=== PATIENT | male | born 2000 | race Caucasian/White ===

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

== ENCOUNTER → 2020-12-02 | Outpatient (CLI) | payer SELFPAY ==
[~2020-12-02] MED LIST changes: +MEDROL DOSEPAK4 MG PO
== END | disposition home or self-care (01) ==
LOC: COVID19 11:47
PROVIDERS: ATTEND Internal Medicine
DX: Z20.828 Contact with and (suspected) exposure to other viral communicable diseases (principal)

== ENCOUNTER 2020-12-20 15:10 | Emergency (ER) | payer SELFPAY ==
[~2020-12-20] VITALS: Wt 113.4 kg
[2020-12-20 15:17] VITALS: BP 130/86
[2020-12-20] MEDS ORDERED: SEPTDS PO (16:31)
[2020-12-20] MEDS ORDERED: VALTREX1000 MG PO (16:31)
[2020-12-20] MEDS ORDERED: CEPHALEXIN500 M1 PO (16:31)
== END 2020-12-20 16:42 | disposition home or self-care (01) ==
LOC: ED 15:10
DX: K12.0 Recurrent oral aphthae (principal); L30.9 Dermatitis, unspecified

== ENCOUNTER 2022-07-01 10:20 | Emergency (ER) | payer OTHER ==
[~2022-07-01] VITALS: Ht 190.5 cm; Wt 149.7 kg
[~2022-07-01 10:20] MED LIST changes: +CEPHALEXIN500 M1 PO; +SEPTDS PO; +VALTREX1000 MG PO
[2022-07-01 10:25] VITALS: BP 127/79
[2022-07-01 11:34] LABS: BASO % 0.4 % (0.0-1.0); EOS % 0.4 % (1.0-4.0); HEMATOCRIT 39.1 % (42.0-52.0); LYMPH # 0.4 10*3/uL (1.3-4.4); LYMPH % 13.9 % (27.0-41.0); MEAN CELL VOLUME 78.2 fl (80.0-94.0); MEAN CORPUSCULAR HGB 27.8 pg (27.0-31.0); MEAN CORPUSCULAR HGB CONC 35.5 g/dl (33.0-37.0); MEAN PLATELET VOLUME 10.2 fl (9.6-12.3); MONO # 0.2 10*3/uL (0.1-1.0); MONO % 6.6 % (3.0-9.0); NEUT % 78.3 % (47.0-73.0); PLATELET COUNT AUTOMATED 109 10*3/uL (130-400); WHITE BLOOD COUNT 2.6 10*3/uL (4.8-10.8)
[2022-07-01 11:50] LABS: ALKALINE PHOSPHATASE 61 U/L (45-117); BUN 8 mg/dl (7-24); CHLORIDE 105 mmol/L (98-107); CREATININE 1.17 mg/dL (0.70-1.30); POTASSIUM 3.7 mmol/L (3.5-5.1); SGOT/AST 31 IU/L (3-35); SGPT/ALT 37 U/L (12-78); SODIUM 136 mmol/L (136-145); TOTAL PROTEIN 6.8 gm/dL (6.4-8.2)
[2022-07-01 12:00] LABS: BILIRUBIN Negative (Negative); BLOOD Negative (Negative); CLARITY Clear (Clear); COLOR Yellow (Yellow); GLUCOSE Negative (Negative); KETONE Trace (Negative); LEUKO ESTERASE Negative (Negative); NITRITE Negative (Negative); SPECIFIC GRAVITY 1.025 (1.001-1.030)
[2022-07-01 12:47] LABS: BACTERIA 2+; MUCOUS 1+
== END 2022-07-01 15:05 | disposition home or self-care (01) ==
LOC: ED 10:20
PROVIDERS: Emergency Medicine
DX: B34.9 Viral infection, unspecified (principal); Z20.822 Contact with and (suspected) exposure to COVID-19; R50.9 Fever, unspecified

== ENCOUNTER 2023-02-22 14:13 | Emergency (ER) | payer OTHER ==
[~2023-02-22] VITALS: Ht 190.5 cm; Wt 136.1 kg
[2023-02-22 14:21] VITALS: BP 126/81
[2023-02-22] MEDS ORDERED: Motrin,Rufen800 MG PO (15:54)
== END 2023-02-22 16:21 | disposition home or self-care (01) ==
LOC: ED 14:13
DX: S80.11XA Contusion of right lower leg, initial encounter (principal); R51.9 Headache, unspecified; R42 Dizziness and giddiness; Z98.890 Other specified postprocedural states; V43.92XA Unspecified car occupant injured in collision with other type car in traffic accident, initial encounter; Y93.89 Activity, other specified; Y92.481 Parking lot as the place of occurrence of the external cause; Y99.8 Other external cause status

== ENCOUNTER 2023-10-10 18:20 | Emergency (ER) | payer SELFPAY ==
[~2023-10-10] VITALS: Ht 190.5 cm; Wt 140.6 kg
[2023-10-10 18:55] VITALS: BP 125/68
[2023-10-10] MEDS ORDERED: ONDANSETRON4 MG SL (20:53)
== END 2023-10-10 21:34 | disposition home or self-care (01) ==
LOC: ED 18:20
DX: B34.9 Viral infection, unspecified (principal); R11.2 Nausea with vomiting, unspecified; R19.7 Diarrhea, unspecified; Z98.890 Other specified postprocedural states; Z20.822 Contact with and (suspected) exposure to COVID-19

== ENCOUNTER 2025-04-05 12:47 | Emergency (ER) | payer SELFPAY ==
[~2025-04-05] VITALS: Ht 190.5 cm; Wt 149.7 kg
[~2025-04-05 12:47] MED LIST changes: +ONDANSETRON4 MG SL
[2025-04-05 13:07] VITALS: BP 133/82
[2025-04-05] MEDS ORDERED: VIBRAMYCIN100 MG PO (13:27)
[2025-04-05] MEDS ORDERED: Doxycycline Hyclate 100 MG CAPSULE PO ONE (13:30)
== END 2025-04-05 13:45 | disposition home or self-care (01) ==
LOC: ED 12:47
DX: S30.861A Insect bite (nonvenomous) of abdominal wall, initial encounter (principal); Z98.890 Other specified postprocedural states; W57.XXXA Bitten or stung by nonvenomous insect and other nonvenomous arthropods, initial encounter; Y93.89 Activity, other specified; Y92.89 Other specified places as the place of occurrence of the external cause; Y99.8 Other external cause status